=== PATIENT | female | born 1970 | race Two or more races ===

== ENCOUNTER 2018-11-06 18:58 | Emergency (ER) | payer MEDICAID, OTHER ==
[~2018-11-06] VITALS: Ht 165.1 cm; Wt 59.0 kg
[2018-11-06 20:11] LABS: Basophils # (auto) 0.1 uL; Lymphocytes # (auto) 1.7 uL
[2018-11-06 20:13] LABS: Basophils % (auto) 0.8 % (0.0-2.0); Eosinophils # (auto) 0.4 uL; Eosinophils % (auto) 5.1 % (0.0-7.0); Hematocrit 37.8 % (36.0-46.0); Lymphocytes % (auto) 22.8 % (10.0-50.0); Mean Corpuscular Hemoglobin 26.4 pg (28.0-32.0); Mean Corpuscular Hgb Conc. 31.8 g/dL (32.0-36.0); Monocytes # (auto) 0.4 uL; Monocytes % (auto) 5.7 % (0.0-12.0); Neutrophils # (auto) 4.9 uL; Neutrophils % (auto) 65.6 % (37.0-80.0); Platelet Count (auto) 310 10^3/uL (140-450); Red Blood Cells 4.55 10^6/uL (4.0-5.20); White Blood Cell 7.5 10^3/uL (4.4-10.8)
[2018-11-06 20:27] LABS: Alanine Aminotransferase 19 U/L (13-56); Albumin 3.5 g/dL (3.4-5.0); Anion Gap 9 (5-15); Aspartate Aminotransferase 15 U/L (15-37); BUN/Creatinine Ratio 24.2; Blood Urea Nitrogen 15 mg/dL (7-18); Calcium 8.4 mg/dL (8.5-10.1); Carbon Dioxide 26 mmol/L (21-32); Chloride 105 mmol/L (98-107); GFR African American 133 mL/min; GFR Non-African American 110 mL/min; Glucose 90 mg/dL (74-106); Potassium 3.3 mmol/L (3.5-5.1); Sodium 140 mmol/L (136-145)
[2018-11-06 20:31] LABS: Alkaline Phosphatase 88 U/L (45-117); Bilirubin, Total < 0.1 mg/dL (0.2-1.0); Total Protein 7.6 g/dL (6.4-8.2)
[2018-11-07 04:17] VITALS: BP 105/76
== END 2018-11-07 04:56 | disposition home or self-care (01) ==
LOC: ER 18:58
DX: R07.89 Other chest pain (principal); K21.9 Gastro-esophageal reflux disease without esophagitis; Z87.442 Personal history of urinary calculi; Z91.041 Radiographic dye allergy status
CPT/HCPCS: 36415; 71045; 80053; 84484; 85025; 93005; 94761

== ENCOUNTER 2019-04-16 19:03 | Emergency (ER) | payer MEDICAID ==
[~2019-04-16] VITALS: Ht 165.1 cm; Wt 59.0 kg
[2019-04-17 00:55] VITALS: BP 118/80
[2019-04-17] MEDS ORDERED: TETRACAINE HCL 0.5% OPTH(EYE) SOLN 4ML RIGHTEYE ONE (01:15)
[2019-04-17] MEDS ORDERED: FLUORESCEIN SOD 1 MG TEST STRIP RIGHTEYE ONE (01:15)
== END 2019-04-17 01:49 | disposition home or self-care (01) ==
LOC: ER 19:13
DX: H11.31 Conjunctival hemorrhage, right eye (principal); H10.31 Unspecified acute conjunctivitis, right eye; Z87.442 Personal history of urinary calculi; Z88.8 Allergy status to other drugs, medicaments and biological substances

== ENCOUNTER 2019-10-06 12:49 | Inpatient (IN) | payer MEDICAID ==
[~2019-10-06] VITALS: Ht 1 cm; Wt 56.5 kg
[2019-10-06] MEDS ORDERED: HYDROcodone-ACET 10/325MG TAB PO ONE (15:00)
[2019-10-06] MEDS ORDERED: ONDANSETRON ODT 4 MG TAB PO ONE (15:00)
[2019-10-06] MEDS ORDERED: ONDANSETRON HCL 4 MG/2 ML VIAL IV PRN (16:00)
[2019-10-06] MEDS ORDERED: MORPHINE SULF INJ 2 MG/ML SYRINGE 1ML IV PRN (16:00)
[2019-10-06] MEDS: HYDROcodone-ACET 5/325MG TAB PO PRN (16:16)
[2019-10-06 16:32] LABS: Basophils # (auto) 0 10 ^3/uL (0-0.2); Basophils % (auto) 0.2 % (0.0-2.0); Eosinophils # (auto) 0.1 10 ^3/uL (0-0.8); Eosinophils % (auto) 0.6 % (0.0-7.0); Hematocrit 39.6 % (36.0-46.0); Hemoglobin 13.4 g/dL (12.2-16.2); Lymphocytes # (auto) 0.9 10 ^3/uL (0.4-5.4); Lymphocytes % (auto) 9.1 % (10.0-50.0); Mean Corpuscular Hemoglobin 30.1 pg (28.0-32.0); Mean Corpuscular Hgb Conc. 33.8 g/dL (32.0-36.0); Monocytes # (auto) 0.6 10 ^3/uL (0-1.3); Monocytes % (auto) 5.9 % (0.0-12.0); Neutrophils # (auto) 8.7 10 ^3/uL (1.6-8.6); Neutrophils % (auto) 84.2 % (37.0-80.0); Platelet Count (auto) 258 10^3/uL (140-450); Red Blood Cells 4.45 10^6/uL (4.0-5.20); Red Cell Distribution Width 15.1 % (11.8-14.3); White Blood Cell 10.3 10^3/uL (4.4-10.8)
[2019-10-06 16:46] LABS: INR 0.99 (0.9-1.15); Partial Thromboplastin Time 28.5 sec (23.64-32.05)
[2019-10-06 16:50] LABS: BUN/Creatinine Ratio 16.4; Calcium 8.7 mg/dL (8.5-10.1)
[2019-10-06 17:20] VITALS: BP 140/98
[2019-10-06 17:29] VITALS: BP 140/98
[2019-10-06 22:00] VITALS: BP 127/80
[2019-10-07] MEDS ORDERED: HYDR-531 PO (03:57)
[2019-10-07 05:00] VITALS: BP 116/81
[2019-10-07 08:36] VITALS: BP 114/76
[2019-10-07] MEDS: FAMOTIDINE 20 MG TAB PO SCH (08:52)
[2019-10-07] MEDS: HYDROcodone-ACET 5/325MG TAB PO PRN (11:26)
[2019-10-07 12:28] VITALS: BP 116/69
[2019-10-07 15:54] LABS: Urine Bacteria FEW /hpf (None Seen); Urine Blood 1+ /uL (Negative); Urine Specific Gravity 1.011 (1.001-1.035); Urine WBC 47 /hpf (0 - 5)
[2019-10-07 16:45] VITALS: BP 112/83
[2019-10-07] MEDS ORDERED: GABA400C11 PO (18:25)
[2019-10-07] MEDS ORDERED: SENN1TAB14 PO (18:27)
[2019-10-08 05:00] VITALS: BP 103/52
[2019-10-08 09:00] VITALS: BP 118/72
[2019-10-08] MEDS: FAMOTIDINE 20 MG TAB PO SCH (10:49)
[2019-10-08 11:50] VITALS: BP 118/72
[2019-10-08 13:00] VITALS: BP 103/73
== END 2019-10-08 14:32 | disposition home or self-care (01) | DRG 342 ==
LOC: ER 12:49 → OVERFLOW 12:50 → CENTRAL 17:32
PROVIDERS: ADMIT Nurse Practitioner Acute Care; ATTEND Internal Medicine
DX: S82.141A Displaced bicondylar fracture of right tibia, initial encounter for closed fracture (principal); G82.20 Paraplegia, unspecified; G62.9 Polyneuropathy, unspecified; W05.0XXA Fall from non-moving wheelchair, initial encounter; Y93.89 Activity, other specified; Z99.3 Dependence on wheelchair; Y92.89 Other specified places as the place of occurrence of the external cause; Y99.8 Other external cause status
CPT/HCPCS: 36415; 73562; 73700; 80048; 81001; 84702; 85025; 85610; 85730; G0378; Q0162

== ENCOUNTER 2019-12-12 17:44 | Inpatient (IN) | payer MEDICAID ==
[~2019-12-12] VITALS: Ht 165.1 cm; Wt 64.0 kg
[~2019-12-12 17:44] MED LIST: GABA400C11 PO; HYDR-531 PO; SENN1TAB14 PO
[2019-12-12] MEDS ORDERED: SODIUM CHLORIDE 0.9% 1,000 ML IV ONE ×3 (18:26→19:15)
[2019-12-12] MEDS ORDERED: ONDANSETRON HCL 4 MG/2 ML VIAL IV ONE (18:30)
[2019-12-12 18:37] LABS: Hematocrit 33.7 % (36.0-46.0); Mean Corpuscular Hemoglobin 28.8 pg (28.0-32.0); Mean Corpuscular Hgb Conc. 32.5 g/dL (32.0-36.0); Mean Corpuscular Volume 88.6 fL (80.0-100.0); Platelet Count (auto) 189 10^3/uL (140-450); Red Blood Cells 3.81 10^6/uL (4.0-5.20); Red Cell Distribution Width 14.8 % (11.8-14.3); White Blood Cell 23.6 10^3/uL (4.4-10.8)
[2019-12-12 18:42] LABS: Basophils % (manual) 0 (0.0-2.0); Blast Cells 0; Eosinophils % (manual) 0 (0-7); Myelocytes % 0; Promyelocytes % 0; Reactive Lymphocytes 0
[2019-12-12 18:57] LABS: Albumin 2.4 g/dL (3.4-5.0); Magnesium 1.5 mg/dL (1.6-2.6); Potassium 3.7 mmol/L (3.5-5.1)
[2019-12-12 18:58] LABS: Band Neutrophils % (manual) 11; Lymphocytes % (manual) 4 (10.0-50.0); Metamyelocytes % 4; Monocytes % (manual) 1 (0-12)
[2019-12-12 19:01] LABS: BUN/Creatinine Ratio 7.3
[2019-12-12 19:02] LABS: Bilirubin, Total 0.7 mg/dL (0.2-1.0); Total Protein 7.1 g/dL (6.4-8.2)
[2019-12-12] MEDS ORDERED: VANCOMYCIN PER PHARMACY 1,000 MG IV SCH (19:30)
[2019-12-12] MEDS ORDERED: MORPHINE SULF INJ 2 MG/ML SYRINGE 1ML IV PRN ×2 (19:30)
[2019-12-12] MEDS ORDERED: NITROGLYCERIN 0.4 MG SL TAB SL PRN (19:30)
[2019-12-12] MEDS ORDERED: LORazepam 2MG/ML-1ML VIAL IV PRN (19:30)
[2019-12-12] MEDS ORDERED: MEROPENEM 500MG IVPB 50 ML IV ONE ×2 (19:45→20:00)
[2019-12-12] MEDS ORDERED: MAGNESIUM SULFATE 1GM/100ML 100 ML IV ONE (20:00)
[2019-12-12 20:04] LABS: Urine Bacteria NONE SEEN /hpf (None Seen); Urine Blood 2+ /uL (Negative); Urine Specific Gravity 1.015 (1.001-1.035); Urine WBC 4280 /hpf (0 - 5); Urine WBC Clumps PRESENT /hpf (None Seen)
[2019-12-12] MEDS: LACTATED RINGER'S 1,000 ML IV SCH (20:17)
[2019-12-12] MEDS ORDERED: NOREPINEPHRINE 8 MG/250ML KIT 250 ML IV SCH (20:45)
[2019-12-12] MEDS ORDERED: VANCOMYCIN 1GM/250ML 250 ML IV ONE (21:00)
[2019-12-12 21:31] LABS: INR 1.34 (0.9-1.15)
[2019-12-12] MEDS: FAMOTIDINE (10MG/ML) 2ML VL IV SCH (22:30)
[2019-12-12] MEDS: GABAPENTIN 100 MG CAP PO SCH (22:30)
[2019-12-12] MEDS: MAGNESIUM OXIDE 400 MG TAB PO SCH (22:30)
[2019-12-13] MEDS: HYDROCORTISONE SOD SUCC 100 MG/2ML INJ VIAL IV SCH ×5 (00:28→23:58)
[2019-12-13 05:56] LABS: Hematocrit 30.5 % (36.0-46.0); Hemoglobin 9.9 g/dL (12.2-16.2); Mean Corpuscular Hemoglobin 29.2 pg (28.0-32.0); Mean Corpuscular Hgb Conc. 32.6 g/dL (32.0-36.0); Mean Corpuscular Volume 89.4 fL (80.0-100.0); Platelet Count (auto) 185 10^3/uL (140-450); Red Blood Cells 3.41 10^6/uL (4.0-5.20); Red Cell Distribution Width 15.1 % (11.8-14.3); White Blood Cell 23.9 10^3/uL (4.4-10.8)
[2019-12-13] MEDS: GABAPENTIN 100 MG CAP PO SCH ×3 (06:00→21:56)
[2019-12-13 06:05] LABS: Basophils % (manual) 0 (0.0-2.0); Blast Cells 0; Eosinophils % (manual) 0 (0-7); Metamyelocytes % 0; Monocytes % (manual) 0 (0-12); Myelocytes % 0; Promyelocytes % 0; Reactive Lymphocytes 0
[2019-12-13 06:12] LABS: Potassium 4.4 mmol/L (3.5-5.1)
[2019-12-13 06:22] LABS: BUN/Creatinine Ratio 10.3; Calcium 7.4 mg/dL (8.5-10.1)
[2019-12-13 06:50] LABS: Band Neutrophils % (manual) 13; Lymphocytes % (manual) 2 (10.0-50.0)
[2019-12-13] MEDS: LACTATED RINGER'S 1,000 ML IV SCH ×2 (07:00→11:59)
[2019-12-13] MEDS: FAMOTIDINE (10MG/ML) 2ML VL IV SCH (09:28)
[2019-12-13] MEDS: MAGNESIUM OXIDE 400 MG TAB PO SCH ×2 (09:28→21:56)
[2019-12-13] MEDS ORDERED: ENOXAPARIN SOD 40 MG/0.4 ML SYRINGE SC SCH (10:00)
[2019-12-13] MEDS ORDERED: MEROPENEM 500MG IVPB 50 ML IV SCH (10:00)
--- NOTE | 2019-12-13 13:48 | NUR ---
Telemetry admit from [facility] admitted to Telemetry unit after SBAR received. Patient oriented to Becki larry RN, unit, room, bed, and unit policies regarding patient care and visiting hours. Patient now on continuous telemetry monitoring, tele box #16 and telemetry reading on arrival to unit is normal sinus rhythm. Patient weighed by bedscale and encouraged to call if they need something. All questions and concerns addressed, patient verbalized understanding.
[2019-12-13 14:32] VITALS: BP 113/84
[2019-12-13] MEDS ORDERED: VANCOMYCIN 1GM/250ML 250 ML IV ONE (15:00)
[2019-12-13 17:00] VITALS: BP 101/72
--- NOTE | 2019-12-13 19:45 | NUR ---
Opening Shift Note Assumed care of patient, awake and alert. Patient rounded. Patient paraplegic, however, she does everything by herself even at home. Patient's wheelchair at bedside. Patient able to transfer from bed to wheelchair independently and able to do ADL independently. No S/S of distress/SOB or pain. Instructed on POC and to call for assist PRN, will continue to monitor for changes Q1hr and PRN.
--- NOTE | 2019-12-13 20:00 | NUR ---
Patient's room mate called that patient needed help. Patient found on the floor in a sitting position, between the bed and the wheelchair, arm grabbing on the bed and the other arm supporting her weight. Patient said she was trying to transfer to her wheelchair when the wheelchair moved, so she slid to the floor. Patient denies hitting her head. Patient helped back to bed. Vital signs taken Temp=98.0; VM=480; RR= 20; O2 sat=96% on room air; ZJ=260/78; Patient complains of tolerable pain on the buttocks and back. Patient able to do ROM. Will continue to monitor patient. Addendum: 12/14/19 at 0537 by Mayra Bridges RN Skin assessed. Skin intact. No bruising noted.
[2019-12-13] MEDS: MEROPENEM 1GM IVPB 100 ML IV SCH (21:56)
[2019-12-13 22:00] VITALS: BP 105/71
[2019-12-13] MEDS: CARVEDILOL 3.125 MG TAB PO SCH (22:00)
--- NOTE | 2019-12-13 22:00 | NUR ---
Patient has no complains, verbalizing she's feeling good. Care continued.
[2019-12-13] MEDS: SODIUM CHLORIDE 0.9% 1,000 ML IV SCH (22:31)
--- NOTE | 2019-12-14 | NUR ---
Dr. Rubio made aware of patient sliding off bed, updated with patient's status. No orders given. Care continued.
[2019-12-14] MEDS: SODIUM CHLORIDE 0.9% 1,000 ML IV SCH ×3 (04:53→17:59)
[2019-12-14 05:00] VITALS: BP 107/77
[2019-12-14 05:45] LABS: Hematocrit 28.6 % (36.0-46.0); Hemoglobin 9.3 g/dL (12.2-16.2); Mean Corpuscular Hemoglobin 28.9 pg (28.0-32.0); Mean Corpuscular Hgb Conc. 32.6 g/dL (32.0-36.0); Mean Corpuscular Volume 88.5 fL (80.0-100.0); Platelet Count (auto) 199 10^3/uL (140-450); Red Blood Cells 3.23 10^6/uL (4.0-5.20); Red Cell Distribution Width 14.9 % (11.8-14.3)
[2019-12-14 05:54] LABS: Basophils % (manual) 0 (0.0-2.0); Blast Cells 0; Eosinophils % (manual) 0 (0-7); INR 1.07 (0.9-1.15); Partial Thromboplastin Time 31.1 sec (23.64-32.05); Promyelocytes % 0; Reactive Lymphocytes 0
[2019-12-14 05:56] LABS: Potassium 3.8 mmol/L (3.5-5.1)
[2019-12-14] MEDS: FUROSEMIDE 20 MG/2 ML VIAL IV SCH ×2 (06:00→17:59)
[2019-12-14 06:05] LABS: Albumin 1.9 g/dL (3.4-5.0); BUN/Creatinine Ratio 17.6; Calcium 7.7 mg/dL (8.5-10.1); Magnesium 2.6 mg/dL (1.6-2.6)
[2019-12-14 06:11] LABS: Bilirubin, Total 0.2 mg/dL (0.2-1.0); Phosphorus 3.2 mg/dL (2.5-4.90); Total Protein 5.9 g/dL (6.4-8.2)
[2019-12-14] MEDS: HYDROCORTISONE SOD SUCC 100 MG/2ML INJ VIAL IV SCH ×3 (06:14→17:59)
[2019-12-14] MEDS: GABAPENTIN 100 MG CAP PO SCH ×3 (06:14→21:56)
--- NOTE | 2019-12-14 08:34 | NUR ---
OPENING SHIFT NOTE ASSUMED CARE OF PATIENT AWAKE AND ALERT. NO S/S OF DISTRESS NOTED OR COMPLAINTS OF PAIN. PATIENT UPDATED ON POC FOR THE DAY AND ALL QUESTIONS ANSWERED. BED IS IN LOWEST, LOCKED POSITION WITH SIDE RAILS UP X2 AND CALL LIGHT WITHIN REACH. WILL CONTINUE TO MONITOR Q1H AND PRN.
[2019-12-14 08:48] VITALS: BP 116/65
--- NOTE | 2019-12-14 09:45 | NUR ---
CARDIOLOGY CONSULT DR ANDERSON AT BEDSIDE CONSULTING WITH PATIENT.
[2019-12-14] MEDS: MEROPENEM 1GM IVPB 100 ML IV SCH ×2 (10:07→21:55)
[2019-12-14] MEDS: FAMOTIDINE (10MG/ML) 2ML VL IV SCH (10:08)
[2019-12-14] MEDS: CARVEDILOL 3.125 MG TAB PO SCH ×2 (10:09→21:54)
[2019-12-14] MEDS: MAGNESIUM OXIDE 400 MG TAB PO SCH ×2 (10:09→21:55)
[2019-12-14 10:49] LABS: Band Neutrophils % (manual) 8; Lymphocytes % (manual) 2 (10.0-50.0); Metamyelocytes % 1; Monocytes % (manual) 2 (0-12); Myelocytes % 2
[2019-12-14 12:59] VITALS: BP 102/55
[2019-12-14 16:40] VITALS: BP 98/70
[2019-12-14 22:00] VITALS: BP 101/64
[2019-12-15] MEDS: HYDROCORTISONE SOD SUCC 100 MG/2ML INJ VIAL IV SCH ×4 (00:18→18:24)
[2019-12-15] MEDS: SODIUM CHLORIDE 0.9% 1,000 ML IV SCH ×2 (00:19→06:54)
[2019-12-15 05:00] VITALS: BP 101/59
[2019-12-15] MEDS: GABAPENTIN 100 MG CAP PO SCH ×3 (05:57→22:41)
[2019-12-15] MEDS: FUROSEMIDE 20 MG/2 ML VIAL IV SCH (05:57)
[2019-12-15 06:06] LABS: Basophils # (auto) 0 10 ^3/uL (0-0.2); Basophils % (auto) 0.1 % (0.0-2.0); Eosinophils # (auto) 0 10 ^3/uL (0-0.8); Hematocrit 28.2 % (36.0-46.0); Hemoglobin 9.4 g/dL (12.2-16.2); Lymphocytes # (auto) 0.4 10 ^3/uL (0.4-5.4); Lymphocytes % (auto) 2.4 % (10.0-50.0); Mean Corpuscular Hemoglobin 29.4 pg (28.0-32.0); Mean Corpuscular Hgb Conc. 33.5 g/dL (32.0-36.0); Mean Corpuscular Volume 87.9 fL (80.0-100.0); Monocytes # (auto) 0.3 10 ^3/uL (0-1.3); Monocytes % (auto) 1.7 % (0.0-12.0); Neutrophils # (auto) 17.8 10 ^3/uL (1.6-8.6); Neutrophils % (auto) 95.8 % (37.0-80.0); Platelet Count (auto) 211 10^3/uL (140-450); Red Blood Cells 3.21 10^6/uL (4.0-5.20); White Blood Cell 18.6 10^3/uL (4.4-10.8)
[2019-12-15 06:31] LABS: Potassium 3.3 mmol/L (3.5-5.1)
[2019-12-15 06:55] LABS: Albumin 1.8 g/dL (3.4-5.0); BUN/Creatinine Ratio 24.6; Bilirubin, Total 0.3 mg/dL (0.2-1.0); Calcium 7.2 mg/dL (8.5-10.1); Magnesium 2.5 mg/dL (1.6-2.6); Total Protein 5.5 g/dL (6.4-8.2)
[2019-12-15] MEDS ORDERED: ADENOSINE 52 MG in GIVE UN-DILUTED 0 ML IV STA (08:17)
[2019-12-15] MEDS: CARVEDILOL 3.125 MG TAB PO SCH ×2 (10:00→22:41)
[2019-12-15] MEDS: MAGNESIUM OXIDE 400 MG TAB PO SCH ×2 (10:00→22:41)
[2019-12-15] MEDS: cefTRIAXone 1GM/50ML D5W 50 ML IV SCH (10:28)
[2019-12-15] MEDS: FAMOTIDINE (10MG/ML) 2ML VL IV SCH (10:28)
--- NOTE | 2019-12-15 10:40 | NUR ---
Patient off unit Taken down to stress lab for stress test. Patient's IV's flushed prior and are intact/patent.
[2019-12-15 11:17] LABS: Hepatitis A Ab IgM Negative; Hepatitis B Core IgM Negative; Hepatitis B Surface Antigen Negative (Negative)
[2019-12-15 11:18] LABS: Hepatitis C Antibody Negative (Negative)
[2019-12-15 11:28] VITALS: BP 114/71
--- NOTE | 2019-12-15 12:04 | NUR ---
MD Rowe rounding at bedside Updated pt on POC, patient verbalized understanding.
[2019-12-15 13:00] VITALS: BP 120/70
[2019-12-15] MEDS ORDERED: IOHEXOL 350 MG/ML 100ML IJ ONE (13:00)
[2019-12-15] MEDS ORDERED: LIDOCAINE 2%HCL (LOCAL ANESTH.) INJ 20ML MDV ONE (13:00)
[2019-12-15] MEDS: SOD CHL 0.45% WITH 20MEQ KCL 1,000 ML IV SCH (13:28)
--- NOTE | 2019-12-15 13:53 | NUR ---
Patient taken down to brush clearing laborer for procedure No distress noted upon departure. IV flushed prior and is intact/patent. Care endorsed to ALBERT Zendejas.
[2019-12-15] MEDS ORDERED: fentaNYL CITRATE 100 MCG/2 ML VL ONE (14:34)
[2019-12-15] MEDS ORDERED: MIDAZOLAM HCL 1MG/1ML-2 ML VIAL ONE (14:34)
--- NOTE | 2019-12-15 14:40 | NUR ---
Urine sample sent to lab
[2019-12-15 16:00] LABS: Alcohol, Urine < 3.0 mg/dL (0-10); Amphetamine Screen, Urine NEGATIVE (NEGATIVE); Barbiturate Scree,Urine NEGATIVE (NEGATIVE); Benzodiazephine Screen, Urine NEGATIVE (NEGATIVE); Cannabinoid Screen, Urine NEGATIVE (NEGATIVE); Cocaine Screen, Urine NEGATIVE (NEGATIVE); Opiate Scree,Urine NEGATIVE (NEGATIVE); Phencyclidine Screen, Urine NEGATIVE (NEGATIVE)
--- NOTE | 2019-12-15 16:10 | NUR ---
Patient returned to floor from procedure Noted left side nephrostomy tube in place and draining pinkish-yellow fluid, dressing is C/D/I. Patient's breaths are even and unlabored with no s/s of SOB/distress. Will continue to monitor.
--- NOTE | 2019-12-15 16:59 | NUR ---
CHERYL Parry at bedside for urology consultation
[2019-12-15 17:00] VITALS: BP 118/71
[2019-12-15 22:00] VITALS: BP 123/77
[2019-12-15] MEDS ORDERED: ATORVASTATIN 20 MG TAB PO SCH (22:00)
[2019-12-16] MEDS: HYDROCORTISONE SOD SUCC 100 MG/2ML INJ VIAL IV SCH ×2 (00:01→06:06)
[2019-12-16] MEDS: SOD CHL 0.45% WITH 20MEQ KCL 1,000 ML IV SCH ×2 (02:20→08:06)
[2019-12-16 05:00] VITALS: BP 117/65
[2019-12-16] MEDS: GABAPENTIN 100 MG CAP PO SCH ×2 (06:05→13:35)
[2019-12-16 06:14] LABS: Potassium 3.6 mmol/L (3.5-5.1)
[2019-12-16 06:19] LABS: BUN/Creatinine Ratio 35.8; Calcium 7.4 mg/dL (8.5-10.1)
[2019-12-16 06:20] LABS: Hematocrit 30.8 % (36.0-46.0); Mean Corpuscular Hgb Conc. 32.6 g/dL (32.0-36.0); Platelet Count (auto) 247 10^3/uL (140-450); Red Blood Cells 3.46 10^6/uL (4.0-5.20); Red Cell Distribution Width 15.3 % (11.8-14.3); White Blood Cell 12.4 10^3/uL (4.4-10.8)
[2019-12-16 06:50] LABS: Basophils % (manual) 0 (0.0-2.0); Blast Cells 0; Eosinophils % (manual) 0 (0-7); Metamyelocytes % 0; Myelocytes % 0; Promyelocytes % 0; Reactive Lymphocytes 0
--- NOTE | 2019-12-16 07:19 | NUR ---
Opening Shift Note Assumed care of patient, resting in bed with eyes closed. No S/S of distress/SOB or pain. Bed is set in lowest locked position with side rails up x 2 for safety and call light is within reach, will continue to monitor for changes Q1hr and PRN. Hammond is hung below level of bladder and is patent/draining clear yellow fluid. Noted left nephrostomy tube in place with dressing over site and is C/D/I.
[2019-12-16 07:39] LABS: Band Neutrophils % (manual) 8; Lymphocytes % (manual) 10 (10.0-50.0); Monocytes % (manual) 7 (0-12)
[2019-12-16 08:28] VITALS: BP 93/57
[2019-12-16] MEDS: CARVEDILOL 3.125 MG TAB PO SCH (09:01)
[2019-12-16] MEDS: FAMOTIDINE (10MG/ML) 2ML VL IV SCH (09:01)
[2019-12-16] MEDS: cefTRIAXone 1GM/50ML D5W 50 ML IV SCH (09:01)
--- NOTE | 2019-12-16 12:00 | NUR ---
MD Rowe rounding at bedside Updated patient on POC, and discussed plans for discharge. Patient states she is ready to go home and feels better.
[2019-12-16 13:13] VITALS: BP 95/64
[2019-12-16] MEDS ORDERED: MAGN400T21 PO (13:19)
[2019-12-16] MEDS ORDERED: CAR3125T PO (13:19)
[2019-12-16] MEDS ORDERED: ENAL2.5T11 PO (13:19)
[2019-12-16] MEDS ORDERED: ATOR20TA50 PO (13:19)
[2019-12-16] MEDS ORDERED: LEVO-28 PO (13:21)
[2019-12-16] MEDS ORDERED: NITR100C6 PO (13:23)
--- NOTE | 2019-12-16 13:50 | NUR ---
I faxed home health order to [facility].
--- NOTE | 2019-12-16 14:21 | NUR ---
I spoke with Татьяна at [facility]-she said they are able to accept this patient-I faxed home health order to [facility] asking for authorization for [facility].
--- NOTE | 2019-12-16 14:58 | NUR ---
I received a message from [facility] project planner Angela letting me know that the authorization number for [facility] [place] is [id number].
[2019-12-16 15:46] VITALS: BP_SYST 111; BP_SYST 93; BP_DIAS 57; BP_DIAS 65
--- NOTE | 2019-12-16 16:30 | NUR ---
Per patient request, called in prescriptions to other pharmacy [facility] located at [address] [place] [id number]. Patient states this pharmacy is closer to her and prefers to fern picker prescriptions here. Per pharmacist medications will be available for fern picker at 1730. Patient notified.
[2019-12-16 16:38] VITALS: BP 111/65
--- NOTE | 2019-12-16 16:40 | NUR ---
Discharge instructions and education given to patient Demonstration provided, patient returned demonstration for Hammond care and nephrostomy tube care. Patient states she is currently waiting for her ride, states they will be here once they are available at 1800. personal property appraiser, Ryan, notified. Will continue to monitor patient.
--- NOTE | 2019-12-16 18:45 | NUR ---
Discharge instructions given as ordered, patient verbalized understanding to Friend and nephrostomy tube care. Encouraged to follow up with PMD as instructed. All questions and concerns addressed. Patient verbalized understanding. IV removed with catheter intact, pressure dressing applied, friend catheter and nephrostomy tube in place per MD orders. Telemetry unit returned to ICU. Patient taken to vehicle via wheelchair with all personal belongings, accompanied by staff. No distress noted at time of departure.
[2019-12-16] MEDS ORDERED: MAGNESIUM OXIDE 400 MG TAB PO SCH (22:00)
== END 2019-12-16 18:45 | disposition home health service (06) | DRG 720 ==
LOC: ER 17:44 → TELE 17:45 → TELE-EAST 12-13 13:48
PROVIDERS: ADMIT Hospitalist; ATTEND Internal Medicine
PROC: 0T9130Z Drainage of Left Kidney with Drainage Device, Percutaneous Approach (ICD-10-PCS; principal; 2019-12-15)
PROC: BT1F1ZZ Fluoroscopy of Left Kidney, Ureter and Bladder using Low Osmolar Contrast (ICD-10-PCS; 2019-12-15)
PROC: BT42ZZZ Ultrasonography of Left Kidney (ICD-10-PCS; 2019-12-15)
DX: A41.9 Sepsis, unspecified organism (principal); N17.0 Acute kidney failure with tubular necrosis; R65.21 Severe sepsis with septic shock; E43 Unspecified severe protein-calorie malnutrition; I42.9 Cardiomyopathy, unspecified; G82.20 Paraplegia, unspecified; E83.42 Hypomagnesemia; E87.1 Hypo-osmolality and hyponatremia; N13.6 Pyonephrosis; N18.4 Chronic kidney disease, stage 4 (severe); Z99.3 Dependence on wheelchair; R73.9 Hyperglycemia, unspecified; E78.1 Pure hyperglyceridemia; B96.20 Unspecified Escherichia coli [E. coli] as the cause of diseases classified elsewhere; E78.5 Hyperlipidemia, unspecified; E86.0 Dehydration; F12.90 Cannabis use, unspecified, uncomplicated; F17.210 Nicotine dependence, cigarettes, uncomplicated; G89.29 Other chronic pain; M54.9 Dorsalgia, unspecified; I25.10 Atherosclerotic heart disease of native coronary artery without angina pectoris; Z82.49 Family history of ischemic heart disease and other diseases of the circulatory system; Z82.5 Family history of asthma and other chronic lower respiratory diseases; Z87.442 Personal history of urinary calculi; Z98.891 History of uterine scar from previous surgery; Z83.3 Family history of diabetes mellitus; Z91.041 Radiographic dye allergy status; Z68.21 Body mass index [BMI] 21.0-21.9, adult
CPT/HCPCS: 36415; 50432; 71045; 74176; 76942; 78452; 80048; 80053; 80061; 80074; 80202; 80307; 81001; 83036; 83605; 83735; 83880; 84100; 85007; 85025; 85027; 85610; 85730; 86850; 86900; 86901; 87040; 87086; 87088; 87186; 93005; 93017; 93306; 99152; 99153; C1729; G0378; J0153; J0696; J2185; J2250; J2405; J3490

== ENCOUNTER 2020-01-27 12:20 | Inpatient (IN) | payer MEDICAID ==
[~2020-01-27] VITALS: Ht 165.1 cm; Wt 58.8 kg
[~2020-01-27 12:20] MED LIST changes: +ATOR20TA50 PO; +CAR3125T PO; +ENAL2.5T11 PO; +MAGN400T21 PO; +NITR100C6 PO
[2020-01-27 13:01] LABS: Urine Blood 1+ /uL (Negative); Urine Specific Gravity 1.008 (1.001-1.035); Urine WBC 51 /hpf (0 - 5); Urine WBC Clumps PRESENT /hpf (None Seen)
[2020-01-27 13:03] LABS: Urine Bacteria MOD /hpf (None Seen)
[2020-01-27] MEDS ORDERED: SODIUM CHLORIDE 0.9% 500 ML IVB ONE (13:48)
[2020-01-27] MEDS ORDERED: ONDANSETRON HCL 4 MG/2 ML VIAL IV ONE (14:00)
[2020-01-27] MEDS ORDERED: MORPHINE SULFATE 4 MG/ML SYR/VIAL IV ONE (14:00)
[2020-01-27 14:17] LABS: Basophils # (auto) 0.1 10 ^3/uL (0-0.2); Eosinophils # (auto) 0.3 10 ^3/uL (0-0.8); Eosinophils % (auto) 4.7 % (0.0-7.0); Hematocrit 37.2 % (36.0-46.0); Hemoglobin 12.1 g/dL (12.2-16.2); Lymphocytes # (auto) 1.7 10 ^3/uL (0.4-5.4); Lymphocytes % (auto) 24.8 % (10.0-50.0); Mean Corpuscular Hemoglobin 28.9 pg (28.0-32.0); Mean Corpuscular Hgb Conc. 32.5 g/dL (32.0-36.0); Mean Corpuscular Volume 88.8 fL (80.0-100.0); Monocytes # (auto) 0.4 10 ^3/uL (0-1.3); Monocytes % (auto) 6.1 % (0.0-12.0); Neutrophils # (auto) 4.4 10 ^3/uL (1.6-8.6); Neutrophils % (auto) 63.4 % (37.0-80.0); Nucleated Red Blood Cells % 0.1 %; Platelet Count (auto) 253 10^3/uL (140-450); Red Blood Cells 4.19 10^6/uL (4.0-5.20); Red Cell Distribution Width 15.1 % (11.8-14.3)
[2020-01-27 14:30] LABS: Albumin 3.8 g/dL (3.4-5.0); Calcium 8.8 mg/dL (8.5-10.1); Potassium 3.8 mmol/L (3.5-5.1)
[2020-01-27 14:34] LABS: BUN/Creatinine Ratio 32.4; Bilirubin, Total 0.4 mg/dL (0.2-1.0); Total Protein 7.5 g/dL (6.4-8.2)
[2020-01-27] MEDS ORDERED: cefTRIAXone 1GM/50ML D5W 50 ML IV ONE (15:30)
[2020-01-27] MEDS ORDERED: LORazepam 0.5 MG TAB PO PRN (16:30)
[2020-01-27] MEDS ORDERED: ACETAMINOPHEN 325 MG TAB PO PRN (16:30)
[2020-01-27] MEDS ORDERED: HYDROcodone-ACET 5/325MG TAB PO PRN (16:30)
[2020-01-27] MEDS ORDERED: NITROGLYCERIN 0.4 MG SL TAB SL PRN (16:30)
[2020-01-27] MEDS ORDERED: MORPHINE SULF INJ 2 MG/ML SYRINGE 1ML IV PRN ×2 (16:30)
[2020-01-27] MEDS ORDERED: ONDANSETRON HCL 4 MG/2 ML VIAL IV PRN (16:30)
[2020-01-27] MEDS ORDERED: SENNA 8.6 MG TAB PO PRN (16:30)
[2020-01-27] MEDS: SODIUM CHLORIDE 0.9% 1,000 ML IV SCH (16:37)
[2020-01-27 16:47] LABS: Cholesterol 120 mg/dL (< 200)
[2020-01-27 16:51] LABS: HDL Cholesterol 50 mg/dL (40-59); LDL Cholesterol 61 mg/dL (< 100); Triglycerides 112 mg/dL (< 150)
--- NOTE | 2020-01-27 20:30 | NUR ---
ADMITTED PATIENT FROM THE ER, AAOX4. NO DISTRESS NOTED. AFEBRILE. DENIED ANY PAIN NOW. NO SOB NOTED. LEFT NEPHROSTOMY TUBE INTACT. ORIENTATION DONE. ROUTINE ADMISSION DONE. POCS DISCUSSED WITH PATIENT AND SHOWED UNDERSTANDING. BED KEPT ON LOWEST POSITION. SIDE RAILS UP. CALL LIGHT/TABLE IN REACH. KEPT COMFORTABLE.
[2020-01-27 21:12] VITALS: BP 109/63
[2020-01-27] MEDS: CARVEDILOL 3.125 MG TAB PO SCH (21:45)
[2020-01-27] MEDS: MAGNESIUM OXIDE 400 MG TAB PO SCH (21:45)
[2020-01-27] MEDS: GABAPENTIN 400 MG CAP PO SCH (21:45)
[2020-01-27] MEDS: ATORVASTATIN 20 MG TAB PO SCH (21:45)
[2020-01-27] MEDS: FAMOTIDINE 20 MG TAB PO SCH (21:48)
[2020-01-27] MEDS: HEPARIN SODIUM (PORCINE) 5000 UNITS/ML 1ML VIAL SC SCH (21:49)
[2020-01-27 22:00] VITALS: BP 109/63
[2020-01-27 23:08] LABS: Amphetamine Screen, Urine NEGATIVE (NEGATIVE); Barbiturate Scree,Urine NEGATIVE (NEGATIVE); Benzodiazephine Screen, Urine NEGATIVE (NEGATIVE); Cannabinoid Screen, Urine NEGATIVE (NEGATIVE); Cocaine Screen, Urine NEGATIVE (NEGATIVE); Opiate Scree,Urine NEGATIVE (NEGATIVE); Phencyclidine Screen, Urine NEGATIVE (NEGATIVE)
[2020-01-28 05:00] VITALS: BP 120/71
[2020-01-28 07:27] LABS: Basophils # (auto) 0 10 ^3/uL (0-0.2); Basophils % (auto) 0.7 % (0.0-2.0); Eosinophils # (auto) 0.3 10 ^3/uL (0-0.8); Eosinophils % (auto) 4.7 % (0.0-7.0); Hemoglobin 11.7 g/dL (12.2-16.2); Lymphocytes # (auto) 1.4 10 ^3/uL (0.4-5.4); Lymphocytes % (auto) 24.7 % (10.0-50.0); Mean Corpuscular Hemoglobin 29.2 pg (28.0-32.0); Mean Corpuscular Hgb Conc. 32.6 g/dL (32.0-36.0); Mean Corpuscular Volume 89.5 fL (80.0-100.0); Monocytes # (auto) 0.4 10 ^3/uL (0-1.3); Monocytes % (auto) 6.5 % (0.0-12.0); Neutrophils # (auto) 3.5 10 ^3/uL (1.6-8.6); Neutrophils % (auto) 63.4 % (37.0-80.0); Platelet Count (auto) 209 10^3/uL (140-450); Red Blood Cells 4.01 10^6/uL (4.0-5.20); Red Cell Distribution Width 15.1 % (11.8-14.3); White Blood Cell 5.6 10^3/uL (4.4-10.8)
--- NOTE | 2020-01-28 07:30 | NUR ---
Opening Shift Note Assumed care of patient, awake and alert. No S/S of distress/SOB or pain. Instructed on POC and to call for assist PRN, will continue to monitor for changes Q1hr and PRN. Bed is locked and in lowest position. Call light within reach.
[2020-01-28 07:35] LABS: INR 0.99 (0.9-1.15); Partial Thromboplastin Time 27.6 sec (23.0-31.2)
[2020-01-28 07:47] LABS: Albumin 3.1 g/dL (3.4-5.0); Bilirubin, Total 0.4 mg/dL (0.2-1.0); Calcium 8.1 mg/dL (8.5-10.1); Magnesium 2.4 mg/dL (1.6-2.6); Phosphorus 3.2 mg/dL (2.5-4.90); Total Protein 6.5 g/dL (6.4-8.2)
[2020-01-28 08:00] VITALS: BP 111/71
[2020-01-28 09:10] VITALS: BP 111/71
[2020-01-28] MEDS ORDERED: ENALAPRIL MALEATE 2.5 MG TAB PO SCH (10:00)
[2020-01-28] MEDS: FAMOTIDINE 20 MG TAB PO SCH ×2 (10:31→22:32)
[2020-01-28] MEDS: SODIUM CHLORIDE 0.9% 1,000 ML IV SCH (10:31)
[2020-01-28] MEDS: cefTRIAXone 1GM/50ML D5W 50 ML IV SCH (10:31)
[2020-01-28] MEDS: MAGNESIUM OXIDE 400 MG TAB PO SCH (10:31)
[2020-01-28] MEDS: CARVEDILOL 3.125 MG TAB PO SCH ×2 (10:32→22:32)
[2020-01-28] MEDS: HEPARIN SODIUM (PORCINE) 5000 UNITS/ML 1ML VIAL SC SCH (10:43)
--- NOTE | 2020-01-28 11:48 | NUR ---
DR. VISHAL RODGERS AT BEDSIDE TO DISCUSS PATIENT POC. PATIENT INFORMED LEFT NEPHROSTOMY TUBE DOES NOT NEED TO REPLACED DUE TO SCHEDULED LEFT EXTRACORPOREAL SHOCKWAVE LITHOTRIPSY WITH DR. BEACH 01/29/2020. ORDERS WILL BE FOLLOWED AND WILL CONTINUE TO MONITOR PATIENT.
[2020-01-28 13:23] VITALS: BP 101/72
[2020-01-28 17:00] VITALS: BP 106/76
[2020-01-28 22:00] VITALS: BP 125/65
[2020-01-28] MEDS: GABAPENTIN 400 MG CAP PO SCH (22:32)
[2020-01-28] MEDS: ATORVASTATIN 20 MG TAB PO SCH (22:32)
[2020-01-29] MEDS: SODIUM CHLORIDE 0.9% 1,000 ML IV SCH ×2 (01:36→18:36)
[2020-01-29 05:00] VITALS: BP 98/71
[2020-01-29] MEDS ORDERED: ePHEDrine SULFATE 50 MG/ML AMP IV ONE (07:30)
[2020-01-29 09:00] VITALS: BP 103/70
[2020-01-29] MEDS: CARVEDILOL 3.125 MG TAB PO SCH ×2 (09:55→22:57)
[2020-01-29] MEDS: cefTRIAXone 1GM/50ML D5W 50 ML IV SCH (10:05)
[2020-01-29] MEDS: FAMOTIDINE 20 MG TAB PO SCH ×2 (10:05→22:58)
--- NOTE | 2020-01-29 12:43 | NUR ---
PATIENT WHEELED DOWN TO PRE OP. PATIENT IN NO S/S OF DISTRESS, ON ROOM AIR. DENIES ANY PAIN AT THIS TIME. TRANSFERRED WITH TELE MONITOR IN PLACE.
[2020-01-29 13:00] VITALS: BP 117/87
[2020-01-29] MEDS ORDERED: MIDAZOLAM HCL 1MG/1ML-2 ML VIAL ONE (13:36)
[2020-01-29] MEDS ORDERED: MEPERIDINE HCL (25 MG/ML) 1ML VIAL ONE (13:36)
[2020-01-29] MEDS ORDERED: fentaNYL CITRATE 100 MCG/2 ML VL ONE (13:36)
[2020-01-29] MEDS ORDERED: DexAMETHasone SOD PHOS 10MG/1ML VIAL INJ ONE (13:40)
[2020-01-29] MEDS ORDERED: ceFAZolin 1GM/50ML 50 ML IV ONE (13:44)
[2020-01-29] MEDS ORDERED: ONDANSETRON HCL 4 MG/2 ML VIAL IV PRN (13:45)
[2020-01-29] MEDS ORDERED: HYDROmorphone HCL 2 MG/ML VL IV PRN (13:45)
[2020-01-29] MEDS ORDERED: MIDAZOLAM HCL 1MG/1ML-2 ML VIAL IV PRN (13:45)
[2020-01-29] MEDS ORDERED: MORPHINE SULFATE 4 MG/ML SYR/VIAL IV PRN (13:45)
[2020-01-29] MEDS ORDERED: ePHEDrine SULFATE 50 MG/ML AMP IV PRN (13:45)
[2020-01-29] MEDS ORDERED: LABETALOL HCL 5 MG/ML 4ML SYRINGE IV PRN (13:45)
--- NOTE | 2020-01-29 14:00 | NUR ---
PATIENT STILL DOWN FOR PROCEDURE. Addendum: 01/29/20 at 1402 by CORBY NUNN RN RN Amended: Links added.
[2020-01-29] MEDS ORDERED: PROPOFOL 10 MG/ML 20 ML IV ONE (14:21)
[2020-01-29] MEDS ORDERED: IOHEXOL 300 MG/ML 100ML BOTTLE IJ ONE (15:13)
--- NOTE | 2020-01-29 15:59 | NUR ---
PATIENT BROUGHT BACK TO THE FLOOR. PATIENT DROWSY BUT EASILY AROUSABLE TO VOICE. PATIENT A&OX4 VITAL SIGNS: 115/89 [facility] HR 72. 02: 100%.
[2020-01-29 17:00] VITALS: BP 119/77
[2020-01-29 22:00] VITALS: BP 107/74
[2020-01-29] MEDS: GABAPENTIN 400 MG CAP PO SCH (22:58)
[2020-01-29] MEDS: ATORVASTATIN 20 MG TAB PO SCH (22:58)
[2020-01-30 05:01] VITALS: BP 100/61
--- NOTE | 2020-01-30 06:56 | NUR ---
Hammond Cath Removed Catheter removed per md order. Patiet tolerated well. Will continue to monitor.
[2020-01-30 07:05] LABS: Basophils # (auto) 0 10 ^3/uL (0-0.2); Basophils % (auto) 0.2 % (0.0-2.0); Eosinophils # (auto) 0 10 ^3/uL (0-0.8); Eosinophils % (auto) 0.1 % (0.0-7.0); Hematocrit 37.3 % (36.0-46.0); Hemoglobin 12.3 g/dL (12.2-16.2); Lymphocytes # (auto) 0.8 10 ^3/uL (0.4-5.4); Lymphocytes % (auto) 8.7 % (10.0-50.0); Mean Corpuscular Hemoglobin 29.5 pg (28.0-32.0); Mean Corpuscular Volume 89.6 fL (80.0-100.0); Monocytes # (auto) 0.2 10 ^3/uL (0-1.3); Monocytes % (auto) 2.3 % (0.0-12.0); Neutrophils # (auto) 7.9 10 ^3/uL (1.6-8.6); Neutrophils % (auto) 88.7 % (37.0-80.0); Platelet Count (auto) 263 10^3/uL (140-450); Red Blood Cells 4.16 10^6/uL (4.0-5.20); Red Cell Distribution Width 14.7 % (11.8-14.3); White Blood Cell 8.9 10^3/uL (4.4-10.8)
[2020-01-30 07:06] LABS: BUN/Creatinine Ratio 21.4; Calcium 8.6 mg/dL (8.5-10.1); Potassium 3.9 mmol/L (3.5-5.1)
[2020-01-30 09:00] VITALS: BP 108/70
[2020-01-30] MEDS: cefTRIAXone 1GM/50ML D5W 50 ML IV SCH (09:27)
[2020-01-30] MEDS: FAMOTIDINE 20 MG TAB PO SCH (09:28)
[2020-01-30] MEDS: CARVEDILOL 3.125 MG TAB PO SCH (09:28)
[2020-01-30] MEDS: SODIUM CHLORIDE 0.9% 1,000 ML IV SCH (11:46)
--- NOTE | 2020-01-30 12:55 | NUR ---
Hospitalist Rounded Dr. Head rounded on patient.
[2020-01-30 14:41] VITALS: BP 112/67
--- NOTE | 2020-01-30 15:55 | NUR ---
Urine strained Sample sent to the lab for analysis
--- NOTE | 2020-01-30 16:10 | NUR ---
Discharge instructions given as ordered. Encourage to follow up with PMD as instructed. All questions and concerns addressed. Patient verbalized understanding. Medication reconciliation form completed and copy given to patient. IV removed with catheter intact and pressure dressing applied. Telemetry unit returned to ICU. Patient taken to vehicle via wheelchair with all personal belongings, accompanied by staff. No distress noted at time of departure. Patient encouraged to strain all urine and follow up with Dr. Carmichael on February 03, 2020 at 8:30am.
== END 2020-01-30 16:15 | disposition home or self-care (01) | DRG 465 ==
LOC: ER 12:20 → TELE 12:21 → TELE-WESTW 20:40
PROVIDERS: ADMIT Hospitalist; ATTEND Internal Medicine
PROC: BT121ZZ Fluoroscopy of Left Kidney using Low Osmolar Contrast (ICD-10-PCS; 2020-01-29)
PROC: 0TF7XZZ Fragmentation in Left Ureter, External Approach (ICD-10-PCS; principal; 2020-01-29 13:50)
DX: N20.2 Calculus of kidney with calculus of ureter (principal); G82.20 Paraplegia, unspecified; E86.0 Dehydration; N31.2 Flaccid neuropathic bladder, not elsewhere classified; F17.210 Nicotine dependence, cigarettes, uncomplicated; I11.0 Hypertensive heart disease with heart failure; I50.42 Chronic combined systolic (congestive) and diastolic (congestive) heart failure; K80.20 Calculus of gallbladder without cholecystitis without obstruction; N26.1 Atrophy of kidney (terminal); Z82.5 Family history of asthma and other chronic lower respiratory diseases; Z93.6 Other artificial openings of urinary tract status; Z83.3 Family history of diabetes mellitus; Z79.899 Other long term (current) drug therapy; N39.0 Urinary tract infection, site not specified; Z87.442 Personal history of urinary calculi
CPT/HCPCS: 36415; 71045; 74018; 74176; 80048; 80053; 80061; 80307; 81001; 82360; 83036; 83735; 84100; 84484; 84702; 85025; 85610; 85730; 86850; 86900; 86901; 87040; 87086; G0378; J0690; J0696; J1100; J2250; J2704

== ENCOUNTER 2021-01-20 20:23 | Inpatient (IN) | payer MEDICAID ==
[~2021-01-20] VITALS: Ht 165.1 cm; Wt 61.8 kg
[~2021-01-20 20:23] MED LIST changes: -GABA400C11 PO; +MAGN241.4 PO; -MAGN400T21 PO
[2021-01-20] MEDS ORDERED: ACETAMINOPHEN 325 MG TAB PO ONE (21:15)
[2021-01-20 21:31] LABS: Basophils # (auto) 0 10 ^3/uL (0-0.2); Basophils % (auto) 0.7 % (0.0-2.0); Eosinophils # (auto) 0 10 ^3/uL (0-0.8); Eosinophils % (auto) 0.4 % (0.0-7.0); Hematocrit 38.2 % (36.0-46.0); Hemoglobin 12.9 g/dL (12.2-16.2); Lymphocytes # (auto) 0.8 10 ^3/uL (0.4-5.4); Mean Corpuscular Hemoglobin 30.3 pg (28.0-32.0); Mean Corpuscular Hgb Conc. 33.7 g/dL (32.0-36.0); Mean Corpuscular Volume 89.8 fL (80.0-100.0); Monocytes # (auto) 0.3 10 ^3/uL (0-1.3); Monocytes % (auto) 10.3 % (0.0-12.0); Neutrophils # (auto) 1.9 10 ^3/uL (1.6-8.6); Neutrophils % (auto) 61.6 % (37.0-80.0); Nucleated Red Blood Cells % 0.1 %; Red Blood Cells 4.26 10^6/uL (4.0-5.20); White Blood Cell 3.1 10^3/uL (4.4-10.8)
[2021-01-20 21:43] LABS: Albumin 3.6 g/dL (3.4-5.0); Calcium 8.4 mg/dL (8.5-10.1); Potassium 4.4 mmol/L (3.5-5.1)
[2021-01-20 21:45] LABS: BUN/Creatinine Ratio 12.5
[2021-01-20 21:48] LABS: Bilirubin, Total 0.2 mg/dL (0.2-1.0); Total Protein 7.6 g/dL (6.4-8.2)
[2021-01-21] VITALS (8 sets, daily range): BP systolic 97–128; BP diastolic 59–75
[2021-01-21 00:05] LABS: Urine Bacteria FEW /hpf (None Seen); Urine Blood Negative /uL (Negative); Urine Specific Gravity 1.006 (1.001-1.035); Urine WBC 1 /hpf (0 - 5)
[2021-01-21] MEDS ORDERED: cefTRIAXone 1GM/50ML D5W 50 ML IV ONE ×2 (00:45→11:00)
[2021-01-21] MEDS ORDERED: DOXYCYCLINE 100MG/250ML 250 ML IV ONE (00:45)
[2021-01-21] MEDS ORDERED: methylPREDNISolone SOD SUCC 125 MG/2 ML VL IV ONE (01:00)
[2021-01-21] MEDS ORDERED: ACETAMINOPHEN/CODEINE#3 (300/30mg) TAB PO ONE (01:15)
[2021-01-21] MEDS ORDERED: SODIUM CHLORIDE 0.9% 1,000 ML IV ONE (01:15)
[2021-01-21] MEDS ORDERED: ONDANSETRON HCL 4 MG/2 ML VIAL IV PRN (02:15)
[2021-01-21] MEDS ORDERED: MORPHINE SULF INJ 2 MG/ML SYRINGE 1ML IV PRN (02:15)
[2021-01-21] MEDS ORDERED: REMDESIVIR PER PHARMACY 0 ML IV SCH (02:15)
[2021-01-21] MEDS ORDERED: ACETAMINOPHEN 500 MG TAB PO PRN (02:15)
[2021-01-21] MEDS ORDERED: SENNA 8.6 MG TAB PO PRN (02:15)
[2021-01-21] MEDS ORDERED: NITROGLYCERIN 0.4 MG SL TAB SL PRN (02:15)
[2021-01-21] MEDS ORDERED: TEMAZEPAM 15 MG CAP PO PRN (02:15)
[2021-01-21 02:46] LABS: Magnesium 2.2 mg/dL (1.6-2.6)
[2021-01-21 02:55] LABS: CRP High Sensitivity 2.55 mg/dL (< 0.3)
[2021-01-21] MEDS: IPRATROPIUM BROMIDE HFA AER IN SCH ×5 (06:00→23:02)
[2021-01-21] MEDS: ALBUTEROL SULF HFA 90MCG INH 200DOSE IN PRN ×3 (07:01→19:49)
[2021-01-21] MEDS: AZITHROMYCIN 500MG/ 250ML 250 ML IV SCH (10:10)
[2021-01-21] MEDS: ASCORBIC ACID 1,000 MG TAB PO SCH (10:10)
[2021-01-21] MEDS: DexAMETHasone SOD PHOS 10MG/1ML VIAL INJ IV SCH (10:10)
[2021-01-21] MEDS: CHOLECALCIFEROL (VITD3) 2,000 UNIT CAP/TAB PO SCH (10:10)
[2021-01-21] MEDS: PANTOPRAZOLE 40 MG TAB PO SCH (10:10)
[2021-01-21] MEDS: ZINC SULFATE 220mg CAP or TAB PO SCH (10:10)
[2021-01-21] MEDS: ENOXAPARIN SOD 40 MG/0.4 ML SYRINGE SC SCH ×2 (10:11→21:15)
[2021-01-21] MEDS: CARVEDILOL 3.125 MG TAB PO SCH ×2 (10:18→21:17)
[2021-01-21] MEDS: ENALAPRIL MALEATE 2.5 MG TAB PO SCH (10:19)
[2021-01-21] MEDS ORDERED: FUROSEMIDE 20 MG/2 ML VIAL IV ONE (11:00)
[2021-01-21] MEDS ORDERED: REMDESIVIR 200 MG in NS 210ml LOADING DOSE ADULT IV ONE (15:00)
[2021-01-21] MEDS: ATORVASTATIN 20 MG TAB PO SCH (21:14)
[2021-01-22 05:29] VITALS: BP 102/66
[2021-01-22] MEDS: ALBUTEROL SULF HFA 90MCG INH 200DOSE IN PRN ×3 (06:23→19:59)
[2021-01-22] MEDS: IPRATROPIUM BROMIDE HFA AER IN SCH ×4 (06:23→22:00)
[2021-01-22] MEDS: IVERMECTIN 3 MG TAB PO SCH (06:32)
[2021-01-22 06:52] LABS: Basophils # (auto) 0 10 ^3/uL (0-0.2); Basophils % (auto) 0.7 % (0.0-2.0); Eosinophils # (auto) 0 10 ^3/uL (0-0.8); Eosinophils % (auto) 0.2 % (0.0-7.0); Hemoglobin 11.8 g/dL (12.2-16.2); Lymphocytes # (auto) 0.6 10 ^3/uL (0.4-5.4); Lymphocytes % (auto) 17.6 % (10.0-50.0); Mean Corpuscular Hemoglobin 30.5 pg (28.0-32.0); Mean Corpuscular Hgb Conc. 33.8 g/dL (32.0-36.0); Mean Corpuscular Volume 90.1 fL (80.0-100.0); Monocytes # (auto) 0.4 10 ^3/uL (0-1.3); Monocytes % (auto) 10.2 % (0.0-12.0); Neutrophils # (auto) 2.5 10 ^3/uL (1.6-8.6); Neutrophils % (auto) 71.3 % (37.0-80.0); Nucleated Red Blood Cells % 0.1 %; Red Blood Cells 3.89 10^6/uL (4.0-5.20); Red Cell Distribution Width 14.2 % (11.8-14.3); White Blood Cell 3.5 10^3/uL (4.4-10.8)
[2021-01-22 07:16] LABS: Potassium 4.1 mmol/L (3.5-5.1)
[2021-01-22 07:27] LABS: Albumin 2.8 g/dL (3.4-5.0); BUN/Creatinine Ratio 19.4; Bilirubin, Total 0.2 mg/dL (0.2-1.0); CRP High Sensitivity 2.07 mg/dL (< 0.3); Calcium 7.9 mg/dL (8.5-10.1); Total Protein 6.7 g/dL (6.4-8.2)
[2021-01-22 09:00] VITALS: BP 104/59
[2021-01-22] MEDS: ENALAPRIL MALEATE 2.5 MG TAB PO SCH (10:00)
[2021-01-22] MEDS: CARVEDILOL 3.125 MG TAB PO SCH ×2 (10:00→22:15)
[2021-01-22] MEDS: PANTOPRAZOLE 40 MG TAB PO SCH (10:02)
[2021-01-22] MEDS: AZITHROMYCIN 500MG/ 250ML 250 ML IV SCH (10:02)
[2021-01-22] MEDS: ASCORBIC ACID 1,000 MG TAB PO SCH (10:02)
[2021-01-22] MEDS: ZINC SULFATE 220mg CAP or TAB PO SCH (10:02)
[2021-01-22] MEDS: cefTRIAXone 1GM/50ML D5W 50 ML IV SCH (10:02)
[2021-01-22] MEDS: ENOXAPARIN SOD 40 MG/0.4 ML SYRINGE SC SCH ×2 (10:03→22:16)
[2021-01-22] MEDS: CHOLECALCIFEROL (VITD3) 2,000 UNIT CAP/TAB PO SCH (10:03)
[2021-01-22] MEDS: FUROSEMIDE 20 MG/2 ML VIAL IV SCH (10:04)
[2021-01-22] MEDS: DexAMETHasone SOD PHOS 10MG/1ML VIAL INJ IV SCH (10:08)
[2021-01-22 13:00] VITALS: BP 103/62
[2021-01-22] MEDS: REMDESIVIR 100mg 100 MG in SODIUM CHL 0.9% 230 ML IV SCH (15:23)
[2021-01-22 17:00] VITALS: BP 106/64
[2021-01-22 22:00] VITALS: BP 107/70
[2021-01-22] MEDS: ATORVASTATIN 20 MG TAB PO SCH (22:16)
[2021-01-23 05:00] VITALS: BP 103/66
[2021-01-23] MEDS: ALBUTEROL SULF HFA 90MCG INH 200DOSE IN PRN ×2 (05:56→11:19)
[2021-01-23] MEDS: IPRATROPIUM BROMIDE HFA AER IN SCH ×3 (05:56→18:00)
[2021-01-23] MEDS: IVERMECTIN 3 MG TAB PO SCH (06:44)
[2021-01-23 07:40] LABS: Albumin 2.7 g/dL (3.4-5.0); Calcium 7.7 mg/dL (8.5-10.1); Potassium 4.1 mmol/L (3.5-5.1)
[2021-01-23 07:46] LABS: BUN/Creatinine Ratio 28.8; Bilirubin, Total 0.2 mg/dL (0.2-1.0); Total Protein 6.4 g/dL (6.4-8.2)
[2021-01-23 08:30] VITALS: BP 116/70
[2021-01-23] MEDS: CARVEDILOL 3.125 MG TAB PO SCH ×2 (09:45→22:41)
[2021-01-23] MEDS: ENALAPRIL MALEATE 2.5 MG TAB PO SCH (09:45)
[2021-01-23] MEDS: cefTRIAXone 1GM/50ML D5W 50 ML IV SCH (09:47)
[2021-01-23] MEDS: DexAMETHasone SOD PHOS 10MG/1ML VIAL INJ IV SCH (09:47)
[2021-01-23] MEDS: FUROSEMIDE 20 MG/2 ML VIAL IV SCH (09:48)
[2021-01-23] MEDS: ASCORBIC ACID 1,000 MG TAB PO SCH (09:48)
[2021-01-23] MEDS: PANTOPRAZOLE 40 MG TAB PO SCH (09:48)
[2021-01-23] MEDS: ZINC SULFATE 220mg CAP or TAB PO SCH (09:48)
[2021-01-23] MEDS: CHOLECALCIFEROL (VITD3) 2,000 UNIT CAP/TAB PO SCH (09:48)
[2021-01-23] MEDS: ENOXAPARIN SOD 40 MG/0.4 ML SYRINGE SC SCH ×2 (09:49→22:42)
[2021-01-23] MEDS: AZITHROMYCIN 500MG/ 250ML 250 ML IV SCH (11:15)
[2021-01-23 12:20] VITALS: BP 110/69
[2021-01-23] MEDS: REMDESIVIR 100mg 100 MG in SODIUM CHL 0.9% 230 ML IV SCH (15:11)
[2021-01-23 16:49] VITALS: BP 109/72
[2021-01-23 22:00] VITALS: BP 110/75
[2021-01-23] MEDS: ATORVASTATIN 20 MG TAB PO SCH (22:42)
[2021-01-24] VITALS (7 sets, daily range): BP systolic 90–108; BP diastolic 48–74
[2021-01-24] MEDS: IPRATROPIUM BROMIDE HFA AER IN SCH ×5 (00:44→23:14)
[2021-01-24] MEDS: ALBUTEROL SULF HFA 90MCG INH 200DOSE IN PRN ×3 (00:45→23:13)
[2021-01-24] MEDS: IVERMECTIN 3 MG TAB PO SCH (06:09)
[2021-01-24 06:51] LABS: Albumin 2.8 g/dL (3.4-5.0); BUN/Creatinine Ratio 29.1; Calcium 7.7 mg/dL (8.5-10.1); Potassium 3.8 mmol/L (3.5-5.1)
[2021-01-24 06:54] LABS: Bilirubin, Total 0.2 mg/dL (0.2-1.0); Total Protein 6.1 g/dL (6.4-8.2)
[2021-01-24] MEDS: DexAMETHasone SOD PHOS 10MG/1ML VIAL INJ IV SCH (10:00)
[2021-01-24] MEDS: AZITHROMYCIN 250 MG TAB PO SCH (10:40)
[2021-01-24] MEDS: cefTRIAXone 1GM/50ML D5W 50 ML IV SCH (10:40)
[2021-01-24] MEDS: ASCORBIC ACID 1,000 MG TAB PO SCH (10:40)
[2021-01-24] MEDS: ENALAPRIL MALEATE 2.5 MG TAB PO SCH (10:40)
[2021-01-24] MEDS: ENOXAPARIN SOD 40 MG/0.4 ML SYRINGE SC SCH ×2 (10:40→21:49)
[2021-01-24] MEDS: ZINC SULFATE 220mg CAP or TAB PO SCH (10:40)
[2021-01-24] MEDS: CARVEDILOL 3.125 MG TAB PO SCH ×2 (10:40→21:30)
[2021-01-24] MEDS: PANTOPRAZOLE 40 MG TAB PO SCH (10:40)
[2021-01-24] MEDS: FUROSEMIDE 20 MG/2 ML VIAL IV SCH (10:40)
[2021-01-24] MEDS: CHOLECALCIFEROL (VITD3) 2,000 UNIT CAP/TAB PO SCH (10:40)
[2021-01-24] MEDS: REMDESIVIR 100mg 100 MG in SODIUM CHL 0.9% 230 ML IV SCH (14:59)
[2021-01-24] MEDS ORDERED: SODIUM CHLORIDE 0.9% 500 ML IV ONE (17:15)
[2021-01-24] MEDS: ATORVASTATIN 20 MG TAB PO SCH (21:49)
[2021-01-25] VITALS (7 sets, daily range): BP systolic 89–115; BP diastolic 54–70
[2021-01-25] MEDS: ALBUTEROL SULF HFA 90MCG INH 200DOSE IN PRN ×2 (06:13→13:21)
[2021-01-25] MEDS: IPRATROPIUM BROMIDE HFA AER IN SCH ×2 (06:13→13:21)
[2021-01-25 06:30] LABS: Basophils # (auto) 0 10 ^3/uL (0-0.2); Basophils % (auto) 0.1 % (0.0-2.0); Eosinophils # (auto) 0 10 ^3/uL (0-0.8); Hematocrit 36.5 % (36.0-46.0); Hemoglobin 12.4 g/dL (12.2-16.2); Lymphocytes # (auto) 1.1 10 ^3/uL (0.4-5.4); Lymphocytes % (auto) 18.3 % (10.0-50.0); Mean Corpuscular Hemoglobin 30.5 pg (28.0-32.0); Mean Corpuscular Volume 89.6 fL (80.0-100.0); Monocytes # (auto) 0.6 10 ^3/uL (0-1.3); Monocytes % (auto) 9.4 % (0.0-12.0); Neutrophils # (auto) 4.3 10 ^3/uL (1.6-8.6); Neutrophils % (auto) 72.2 % (37.0-80.0); Red Blood Cells 4.07 10^6/uL (4.0-5.20); White Blood Cell 5.9 10^3/uL (4.4-10.8)
[2021-01-25] MEDS: IVERMECTIN 3 MG TAB PO SCH (06:43)
[2021-01-25 06:46] LABS: BUN/Creatinine Ratio 29.6; Calcium 7.8 mg/dL (8.5-10.1); Potassium 3.6 mmol/L (3.5-5.1)
[2021-01-25 06:55] LABS: Bilirubin, Total 0.2 mg/dL (0.2-1.0); Total Protein 6.3 g/dL (6.4-8.2)
[2021-01-25] MEDS: ENALAPRIL MALEATE 2.5 MG TAB PO SCH (10:00)
[2021-01-25] MEDS: CARVEDILOL 3.125 MG TAB PO SCH (10:00)
[2021-01-25] MEDS: FUROSEMIDE 20 MG/2 ML VIAL IV SCH (10:00)
[2021-01-25] MEDS: cefTRIAXone 1GM/50ML D5W 50 ML IV SCH (10:37)
[2021-01-25] MEDS: DexAMETHasone SOD PHOS 10MG/1ML VIAL INJ IV SCH (10:37)
[2021-01-25] MEDS: ZINC SULFATE 220mg CAP or TAB PO SCH (10:40)
[2021-01-25] MEDS: ASCORBIC ACID 1,000 MG TAB PO SCH (10:41)
[2021-01-25] MEDS: PANTOPRAZOLE 40 MG TAB PO SCH (10:41)
[2021-01-25] MEDS: CHOLECALCIFEROL (VITD3) 2,000 UNIT CAP/TAB PO SCH (10:41)
[2021-01-25] MEDS: AZITHROMYCIN 250 MG TAB PO SCH (10:42)
[2021-01-25] MEDS: ENOXAPARIN SOD 40 MG/0.4 ML SYRINGE SC SCH (10:42)
[2021-01-25] MEDS: REMDESIVIR 100mg 100 MG in SODIUM CHL 0.9% 230 ML IV SCH (14:53)
== END 2021-01-25 17:00 | disposition home or self-care (01) | DRG 720 ==
LOC: ER 20:29 → TELE 01-21 02:06 → TELE-EAST 01-21 04:39
PROVIDERS: ADMIT Nurse Practitioner; ATTEND Internal Medicine
PROC: XW033E5 Introduction of Remdesivir Anti-infective into Peripheral Vein, Percutaneous Approach, New Technology Group 5 (ICD-10-PCS; principal; 2021-01-21)
DX: A41.89 Other specified sepsis (principal); U07.1 COVID-19; G82.20 Paraplegia, unspecified; J12.82 Pneumonia due to coronavirus disease 2019; E87.1 Hypo-osmolality and hyponatremia; I50.22 Chronic systolic (congestive) heart failure; E78.5 Hyperlipidemia, unspecified; I11.0 Hypertensive heart disease with heart failure; K80.20 Calculus of gallbladder without cholecystitis without obstruction; N13.30 Unspecified hydronephrosis; Z79.82 Long term (current) use of aspirin; Z82.5 Family history of asthma and other chronic lower respiratory diseases; Z88.8 Allergy status to other drugs, medicaments and biological substances; N13.2 Hydronephrosis with renal and ureteral calculous obstruction
CPT/HCPCS: 36415; 71045; 74176; 80053; 81001; 82306; 82728; 83036; 83605; 83615; 83735; 83880; 84443; 85025; 85379; 86141; 87426; 93005; 94640; G0378; J0696; J1100; J3490